=== PATIENT | female | born 1955 | race Caucasian/White ===

== ENCOUNTER → 2023-06-21 10:04 | Outpatient (REF) | payer MEDICARE, OTHER, SELFPAY | LOC: REG 10:04 | PROVIDERS: ATTENDING PHYSICIAN Chiropractor | DX: Z13.818 Encounter for screening for other digestive system disorders (principal) | CPT/HCPCS: 36415 ==

== ENCOUNTER → 2023-08-14 13:47 | Outpatient (REF) | payer MEDICARE, OTHER, SELFPAY | LOC: RAD 13:47 | PROVIDERS: ATTENDING PHYSICIAN Physician Assistant | DX: R22.41 Localized swelling, mass and lump, right lower limb (principal); M79.671 Pain in right foot | CPT/HCPCS: 73630 ==